=== PATIENT | female | born 1960 | race Caucasian/White ===

== ENCOUNTER 2018-12-28 01:55 | Emergency (ER) | payer OTHER ==
[2018-12-28 03:05] LABS: ADD MAN DIFF? NO
[2018-12-28 03:06] LABS: ABNORMAL IP MESSAGE 1; BASOPHILS % 0.2 % (0.0-2.0); HEMATOCRIT 38.7 % (37.0-47.0); HEMOGLOBIN 13.8 g/dl (12.0-16.0); LYMPHOCYTES # 1.3 10^3/ul (0.8-2.9); LYMPHOCYTES % 5.3 % (15.0-51.0); MEAN CORPUSCULAR HEMOGLOBIN 33.7 pg (29.0-33.0); MEAN CORPUSCULAR HGB CONC 35.7 g/dl (32.0-37.0); MEAN CORPUSCULAR VOLUME 94.4 fl (82.0-101.0); MEAN PLATELET VOLUME 10.1 fl (7.4-10.4); MONOCYTE # 0.8 10^3/ul (0.3-0.9); MONOCYTES % 3.2 % (0.0-11.0); NEUTROPHIL # 21.7 10^3/ul (1.6-7.5); NEUTROPHILS % 89.7 % (39.0-77.0); PLATELET COUNT 272 10^3/UL (140-415); RED CELL DISTRIBUTION WIDTH 14.8 % (11.5-14.5)
[2018-12-28 03:06] LABS: WHITE BLOOD COUNT 24.1 10^3/ul (4.8-10.8)
[2018-12-28 03:10] LABS: POSITIVE DIFF @See below
[2018-12-28 03:23] LABS: ALANINE AMINOTRANSFERASE 32 IU/L (13-69); ALBUMIN 3.1 g/dl (3.3-4.9); ALBUMIN/GLOBULIN RATIO 0.73; ALKALINE PHOSPHATASE 256 IU/L (42-121); ANION GAP 12 (5-13); ASPARTATE AMINO TRANSFERASE 119 IU/L (15-46); BILIRUBIN,INDIRECT 2.9 mg/dl (0-1.1); BILIRUBIN,TOTAL 12.2 mg/dl (0.2-1.3); BLOOD UREA NITROGEN 38 mg/dl (7-20); CALCIUM 9.6 mg/dl (8.4-10.2); CARBON DIOXIDE 24 mmol/L (21-31); CHLORIDE 95 mmol/L (97-110); CREATININE 1.25 mg/dl (0.44-1.00); Estimated GFR 44 mL/min (>60); GLUCOSE 122 mg/dl (70-220); LIPASE 704 U/L (23-300); POTASSIUM 3.5 mmol/L (3.5-5.1); SODIUM 131 mmol/L (135-144); TOTAL PROTEIN 7.3 g/dl (6.1-8.1)
[2018-12-28 03:25] LABS: AMMONIA < 9 umol/l (9-30)
[2018-12-28 04:28] LABS: ADD UMIC NO; UR ASCORBIC ACID NEGATIVE (NEGATIVE); UR BILIRUBIN (Dip) 2+ mg/dL (NEGATIVE); UR BLOOD (Dip) NEGATIVE (NEGATIVE); UR CLARITY CLEAR (CLEAR); UR COLOR AMBER (YELLOW); UR GLUCOSE (Dip) NEGATIVE (NEGATIVE); UR KETONES (Dip) NEGATIVE (NEGATIVE); UR LEUKOCYTE ESTERASE (Dip) NEGATIVE Leu/ul (NEGATIVE); UR NITRITE (Dip) NEGATIVE (NEGATIVE); UR SPECIFIC GRAVITY (Dip) 1.014 (1.003-1.030); UR TOTAL PROTEIN (Dip) NEGATIVE (NEGATIVE); UR UROBILINOGEN (Dip) 2+ mg/dL (NEGATIVE)
== END 2018-12-28 07:13 | disposition home or self-care (01) ==
LOC: E/R 01:55
DX: R41.0 Disorientation, unspecified (principal); N28.9 Disorder of kidney and ureter, unspecified; D72.829 Elevated white blood cell count, unspecified; K74.60 Unspecified cirrhosis of liver
CPT/HCPCS: 36415; 80053; 81003; 82140; 83690; 85025; 99283

== ENCOUNTER 2018-12-29 21:56 | Observation (INO) | payer OTHER ==
[2018-12-30 00:39] LABS: WHITE BLOOD COUNT 27.6 10^3/ul (4.8-10.8)
[2018-12-30 00:39] LABS: ABNORMAL IP MESSAGE 1; HEMATOCRIT 36.4 % (37.0-47.0); HEMOGLOBIN 12.7 g/dl (12.0-16.0); MEAN CORPUSCULAR HEMOGLOBIN 34.1 pg (29.0-33.0); MEAN CORPUSCULAR HGB CONC 34.9 g/dl (32.0-37.0); MEAN CORPUSCULAR VOLUME 97.8 fl (82.0-101.0); MEAN PLATELET VOLUME 10.4 fl (7.4-10.4); PLATELET COUNT 266 10^3/UL (140-415); RED BLOOD COUNT 3.72 10^6/ul (4.20-5.40); RED CELL DISTRIBUTION WIDTH 15.3 % (11.5-14.5)
[2018-12-30 00:41] LABS: POSITIVE DIFF @See below
[2018-12-30 00:42] LABS: ADD MAN DIFF? YES
[2018-12-30 00:58] LABS: INR 1.25; PROTIME 15.8 Sec (11.9-14.9); PT RATIO 1.2
[2018-12-30 00:59] LABS: PARTIAL THROMBOPLASTIN TIME 31.1 Sec (23.0-35.0)
[2018-12-30 01:00] LABS: ALANINE AMINOTRANSFERASE 44 IU/L (13-69); ALBUMIN 3.2 g/dl (3.3-4.9); ALBUMIN/GLOBULIN RATIO 0.74; ALKALINE PHOSPHATASE 266 IU/L (42-121); ANION GAP 15 (5-13); ASPARTATE AMINO TRANSFERASE 101 IU/L (15-46); BILIRUBIN,INDIRECT 2.6 mg/dl (0-1.1); BILIRUBIN,TOTAL 9.8 mg/dl (0.2-1.3); BLOOD UREA NITROGEN 36 mg/dl (7-20); CALCIUM 9.2 mg/dl (8.4-10.2); CARBON DIOXIDE 22 mmol/L (21-31); CHLORIDE 95 mmol/L (97-110); CREATININE 1.31 mg/dl (0.44-1.00); Estimated GFR 42 mL/min (>60); GLUCOSE 137 mg/dl (70-220); LIPASE 1057 U/L (23-300); POTASSIUM 3.6 mmol/L (3.5-5.1); SODIUM 132 mmol/L (135-144); TOTAL PROTEIN 7.5 g/dl (6.1-8.1)
[2018-12-30 01:37] LABS: ANISOCYTOSIS 3+ (0-0); BAND NEUTROPHILS #M 0.2 10^3/ul (0.0-0.6); BAND NEUTROPHILS % (M) 1 % (0-4); BASOPHIL #M 0.2 10^3/ul (0.0-0.0); BASOPHILS % (M) 1 % (0-2); LYMPHOCYTES #M 1.1 10^3/ul (0.8-2.9); LYMPHOCYTES % (M) 4 % (15-51); METAMYELOCYTES #M 0.2 10^3/ul (0.0-0.0); METAMYELOCYTES %M 1 % (0-0); MONOCYTE #M 0.5 10^3/ul (0.3-0.9); MONOCYTES % (M) 2 % (0-11); PLATELET ESTIMATE NORMAL; POIKILOCYTOSIS 1+ (0-0); SEG NEUT #M 25.2 10^3/ul (1.6-7.5); SEGMENTED NEUTROPHILS (M) % 91 % (39-77); SMUDGE%M 24 % (0-0)
[2018-12-30] MEDS ORDERED: ONDANSETRON 4 MG INJ IV (02:00)
[2018-12-30 02:26] LABS: HAAIG REFLEX REFLEX FILED
[2018-12-30] MEDS ORDERED: SPIRONOLACTONE 50 MG TAB PO (02:30)
[2018-12-30] MEDS: LEVOFLOXACIN 500 MG TAB PO (02:51)
[2018-12-30] MEDS: FUROSEMIDE 20 MG INJ IV (02:51)
[2018-12-30 04:25] LABS: HEPATITIS B SURFACE ANTIGEN NEGATIVE (NEGATIVE)
[2018-12-30 04:43] LABS: HEPATITIS B CORE ANTIBODY NEGATIVE (NEGATIVE); HEPATITIS C VIRAL ANTIBODY NEGATIVE (NEGATIVE)
[2018-12-30 06:09] LABS: ADD MAN DIFF? NO
[2018-12-30 06:11] LABS: WHITE BLOOD COUNT 22.8 10^3/ul (4.8-10.8)
[2018-12-30 06:11] LABS: BASOPHIL # 0.1 10^3/ul (0.0-0.1); BASOPHILS % 0.4 % (0.0-2.0); HEMATOCRIT 35.3 % (37.0-47.0); HEMOGLOBIN 12.4 g/dl (12.0-16.0); LYMPHOCYTES # 1.6 10^3/ul (0.8-2.9); LYMPHOCYTES % 6.9 % (15.0-51.0); MEAN CORPUSCULAR HEMOGLOBIN 34.2 pg (29.0-33.0); MEAN CORPUSCULAR HGB CONC 35.1 g/dl (32.0-37.0); MEAN CORPUSCULAR VOLUME 97.2 fl (82.0-101.0); MEAN PLATELET VOLUME 10.5 fl (7.4-10.4); MONOCYTES % 4.2 % (0.0-11.0); NEUTROPHIL # 19.9 10^3/ul (1.6-7.5); NEUTROPHILS % 87.1 % (39.0-77.0); PLATELET COUNT 238 10^3/UL (140-415); RED BLOOD COUNT 3.63 10^6/ul (4.20-5.40); RED CELL DISTRIBUTION WIDTH 15.1 % (11.5-14.5)
[2018-12-30] MEDS: SPIRONOLACTONE 50 MG TAB PO (06:26)
[2018-12-30 06:42] LABS: LIPASE 1072 U/L (23-300)
[2018-12-30 07:02] LABS: ALANINE AMINOTRANSFERASE 44 IU/L (13-69); ALBUMIN 3.1 g/dl (3.3-4.9); ALKALINE PHOSPHATASE 252 IU/L (42-121); ANION GAP 15 (5-13); ASPARTATE AMINO TRANSFERASE 95 IU/L (15-46); BILIRUBIN,INDIRECT 2.7 mg/dl (0-1.1); BILIRUBIN,TOTAL 9.3 mg/dl (0.2-1.3); BLOOD UREA NITROGEN 35 mg/dl (7-20); CALCIUM 9.3 mg/dl (8.4-10.2); CARBON DIOXIDE 25 mmol/L (21-31); CHLORIDE 94 mmol/L (97-110); CREATININE 1.23 mg/dl (0.44-1.00); Estimated GFR 45 mL/min (>60); GLUCOSE 95 mg/dl (70-220); POTASSIUM 3.1 mmol/L (3.5-5.1); SODIUM 134 mmol/L (135-144); TOTAL PROTEIN 7.2 g/dl (6.1-8.1)
[2018-12-30] MEDS: LIDOCAINE 1% (MPF) 5 ML VIAL (08:53)
[2018-12-30] MEDS ORDERED: PROPRANOLOL 20 MG TAB PO ×2 (09:00→10:30)
[2018-12-30] MEDS ORDERED: PANTOPRAZOLE (EC) 40 MG TAB PO (09:30)
[2018-12-30 09:40] LABS: ADD MAN DIFF? NO
[2018-12-30 09:43] LABS: WHITE BLOOD COUNT 21.7 10^3/ul (4.8-10.8)
[2018-12-30 09:43] LABS: BASOPHIL # 0.1 10^3/ul (0.0-0.1); BASOPHILS % 0.3 % (0.0-2.0); EOSINOPHILS % 0.1 % (0.0-7.0); HEMATOCRIT 32.7 % (37.0-47.0); HEMOGLOBIN 11.7 g/dl (12.0-16.0); LYMPHOCYTES # 1.8 10^3/ul (0.8-2.9); LYMPHOCYTES % 8.5 % (15.0-51.0); MEAN CORPUSCULAR HEMOGLOBIN 34.7 pg (29.0-33.0); MEAN CORPUSCULAR HGB CONC 35.8 g/dl (32.0-37.0); MONOCYTES % 4.8 % (0.0-11.0); NEUTROPHIL # 18.4 10^3/ul (1.6-7.5); NEUTROPHILS % 84.9 % (39.0-77.0); PLATELET COUNT 205 10^3/UL (140-415); RED BLOOD COUNT 3.37 10^6/ul (4.20-5.40); RED CELL DISTRIBUTION WIDTH 15.1 % (11.5-14.5)
[2018-12-30 10:02] LABS: FLD MN% 90.3 %; FLD PMN% 9.7 %; FLD WBC 62 /cmm
[2018-12-30] MEDS: PANTOPRAZOLE (EC) 40 MG TAB PO (10:25)
[2018-12-30] MEDS: FUROSEMIDE 40 MG TAB PO (10:25)
[2018-12-30] MEDS: LACTULOSE 30ML CUP PO ×3 (10:25→20:59)
[2018-12-30] MEDS: SPIRONOLACTONE 25 MG TAB PO ×2 (10:30→21:00)
[2018-12-30 10:37] LABS: FLD CLARITY CLEAR; FLD COLOR YELLOW
[2018-12-30 10:37] LABS: FLD TYPE ASCITES
[2018-12-30 10:38] LABS: FLD RBC < 2000 /uL
[2018-12-30 11:02] LABS: FLUID AMYLASE 121 U/L; FLUID LD 117 U/L; FLUID TYPE ASCITES FLUID; FLUID TYPE ASCITIES FLUID
[2018-12-30 11:03] LABS: FLUID TOTAL PROTEIN < 2.0 g/dl
[2018-12-30 11:09] LABS: AMYLASE 151 U/L (11-123)
[2018-12-30] MEDS: PROPRANOLOL 20 MG TAB PO ×2 (12:00→21:00)
[2018-12-30] MEDS: POTASSIUM CHLORIDE (SR) 10 MEQ TAB PO ×2 (12:07→21:02)
[2018-12-31 05:32] LABS: ADD MAN DIFF? NO
[2018-12-31 05:34] LABS: BASOPHIL # 0.1 10^3/ul (0.0-0.1); BASOPHILS % 0.4 % (0.0-2.0); EOSINOPHILS % 0.1 % (0.0-7.0); HEMATOCRIT 35.1 % (37.0-47.0); HEMOGLOBIN 12.2 g/dl (12.0-16.0); LYMPHOCYTES # 1.2 10^3/ul (0.8-2.9); LYMPHOCYTES % 5.7 % (15.0-51.0); MEAN CORPUSCULAR HGB CONC 34.8 g/dl (32.0-37.0); MEAN CORPUSCULAR VOLUME 97.8 fl (82.0-101.0); MEAN PLATELET VOLUME 10.4 fl (7.4-10.4); MONOCYTES % 4.8 % (0.0-11.0); NEUTROPHIL # 18.2 10^3/ul (1.6-7.5); NEUTROPHILS % 87.7 % (39.0-77.0); PLATELET COUNT 207 10^3/UL (140-415); RED BLOOD COUNT 3.59 10^6/ul (4.20-5.40); RED CELL DISTRIBUTION WIDTH 15.5 % (11.5-14.5)
[2018-12-31 05:34] LABS: WHITE BLOOD COUNT 20.8 10^3/ul (4.8-10.8)
[2018-12-31 06:06] LABS: ALANINE AMINOTRANSFERASE 49 IU/L (13-69); ALBUMIN 2.6 g/dl (3.3-4.9); ALKALINE PHOSPHATASE 232 IU/L (42-121); ASPARTATE AMINO TRANSFERASE 130 IU/L (15-46); BILIRUBIN,INDIRECT 2.4 mg/dl (0-1.1); BILIRUBIN,TOTAL 9.1 mg/dl (0.2-1.3)
[2018-12-31 06:39] LABS: ANION GAP 11 (5-13); BLOOD UREA NITROGEN 33 mg/dl (7-20); CALCIUM 9.2 mg/dl (8.4-10.2); CARBON DIOXIDE 23 mmol/L (21-31); CHLORIDE 105 mmol/L (97-110); CREATININE 1.24 mg/dl (0.44-1.00); Estimated GFR 45 mL/min (>60); GLUCOSE 83 mg/dl (70-220); POTASSIUM 4.2 mmol/L (3.5-5.1); SODIUM 139 mmol/L (135-144)
[2018-12-31 07:49] LABS: LIPASE 575 U/L (23-300)
[2018-12-31] MEDS: LACTULOSE 30ML CUP PO ×2 (08:12→13:00)
[2018-12-31] MEDS: POTASSIUM CHLORIDE (SR) 10 MEQ TAB PO (08:12)
[2018-12-31] MEDS: PANTOPRAZOLE (EC) 40 MG TAB PO (08:13)
[2018-12-31] MEDS: PROPRANOLOL 20 MG TAB PO (10:00)
[2018-12-31] MEDS: SPIRONOLACTONE 25 MG TAB PO (10:00)
[2018-12-31] MEDS: FUROSEMIDE 40 MG TAB PO (10:00)
== END 2018-12-31 14:35 | disposition home health service (06) ==
LOC: E/R 21:56 → 2NE 12-30 01:44
DX: K70.31 Alcoholic cirrhosis of liver with ascites (principal); R74.8 Abnormal levels of other serum enzymes; E87.6 Hypokalemia; N28.9 Disorder of kidney and ureter, unspecified
CPT/HCPCS: 36415; 71045; 74181; 76700; 80048; 80053; 80076; 82042; 82150; 83615; 83690; 84157; 85025; 85610; 85730; 86704; 86709; 86803; 87070; 87081; 87102; 87116; 87340; 88104; 88305; 89051; 99285-25

== ENCOUNTER 2019-01-08 16:23 | Inpatient (IN) | payer OTHER ==
[2019-01-08 17:04] LABS: ADD MAN DIFF? NO
[2019-01-08 17:11] LABS: WHITE BLOOD COUNT 19.6 10^3/ul (4.8-10.8)
[2019-01-08 17:11] LABS: BASOPHIL # 0.1 10^3/ul (0.0-0.1); BASOPHILS % 0.3 % (0.0-2.0); HEMATOCRIT 35.5 % (37.0-47.0); HEMOGLOBIN 12.6 g/dl (12.0-16.0); LYMPHOCYTES % 5.3 % (15.0-51.0); MEAN CORPUSCULAR HEMOGLOBIN 33.9 pg (29.0-33.0); MEAN CORPUSCULAR HGB CONC 35.5 g/dl (32.0-37.0); MEAN CORPUSCULAR VOLUME 95.4 fl (82.0-101.0); MEAN PLATELET VOLUME 10.2 fl (7.4-10.4); MONOCYTE # 0.5 10^3/ul (0.3-0.9); MONOCYTES % 2.7 % (0.0-11.0); NEUTROPHIL # 17.7 10^3/ul (1.6-7.5); NEUTROPHILS % 90.3 % (39.0-77.0); PLATELET COUNT 202 10^3/UL (140-415); RED BLOOD COUNT 3.72 10^6/ul (4.20-5.40); RED CELL DISTRIBUTION WIDTH 15.3 % (11.5-14.5)
[2019-01-08 17:33] LABS: AMMONIA 33 umol/l (9-30)
[2019-01-08 17:33] LABS: ALANINE AMINOTRANSFERASE 67 IU/L (13-69); ALBUMIN/GLOBULIN RATIO 0.76; ALKALINE PHOSPHATASE 281 IU/L (42-121); ANION GAP 13 (5-13); ASPARTATE AMINO TRANSFERASE 121 IU/L (15-46); BILIRUBIN,INDIRECT 2.4 mg/dl (0-1.1); BILIRUBIN,TOTAL 7.7 mg/dl (0.2-1.3); BLOOD UREA NITROGEN 28 mg/dl (7-20); CALCIUM 8.8 mg/dl (8.4-10.2); CARBON DIOXIDE 18 mmol/L (21-31); CHLORIDE 92 mmol/L (97-110); CREATININE 1.09 mg/dl (0.44-1.00); Estimated GFR 52 mL/min (>60); GLUCOSE 128 mg/dl (70-220); POTASSIUM 5.1 mmol/L (3.5-5.1); TOTAL PROTEIN 6.9 g/dl (6.1-8.1)
[2019-01-08 17:44] LABS: SODIUM 123 mmol/L (135-144)
[2019-01-08] MEDS ORDERED: ACETAMINOPHEN 325 MG TAB PO (19:30)
[2019-01-08] MEDS ORDERED: ONDANSETRON 4 MG INJ IV (19:30)
[2019-01-08] MEDS: ALBUMIN HUMAN 25% 50 ML IV (20:40)
[2019-01-08] MEDS: LACTULOSE 30ML CUP PO (23:04)
[2019-01-09 01:40] LABS: ADD UMIC YES; UR ASCORBIC ACID NEGATIVE (NEGATIVE); UR BILIRUBIN (Dip) 1+ mg/dL (NEGATIVE); UR BLOOD (Dip) NEGATIVE (NEGATIVE); UR CLARITY SLIGHTLY CLOUDY (CLEAR); UR COLOR AMBER (YELLOW); UR GLUCOSE (Dip) NEGATIVE (NEGATIVE); UR KETONES (Dip) NEGATIVE (NEGATIVE); UR LEUKOCYTE ESTERASE (Dip) 2+ Leu/ul (NEGATIVE); UR MUCUS FEW /HPF (NONE SEEN); UR NITRITE (Dip) NEGATIVE (NEGATIVE); UR RBC 6 /HPF (0-5); UR SPECIFIC GRAVITY (Dip) 1.014 (1.003-1.030); UR SQUAMOUS EPITHELIAL CELL FEW /HPF (FEW); UR TOTAL PROTEIN (Dip) NEGATIVE (NEGATIVE); UR TRANSITIONAL EPI CELL FEW /HPF (NONE SEEN); UR UROBILINOGEN (Dip) 1+ mg/dL (NEGATIVE); UR WBC 18 /HPF (0-5)
[2019-01-09] MEDS: PANTOPRAZOLE (EC) 40 MG TAB PO (05:56)
[2019-01-09 06:01] LABS: ADD MAN DIFF? NO
[2019-01-09 06:09] LABS: BASOPHILS % 0.2 % (0.0-2.0); EOSINOPHILS % 0.1 % (0.0-7.0); HEMATOCRIT 34.6 % (37.0-47.0); HEMOGLOBIN 12.2 g/dl (12.0-16.0); LYMPHOCYTES # 1.2 10^3/ul (0.8-2.9); LYMPHOCYTES % 5.9 % (15.0-51.0); MEAN CORPUSCULAR HEMOGLOBIN 33.2 pg (29.0-33.0); MEAN CORPUSCULAR HGB CONC 35.3 g/dl (32.0-37.0); MEAN CORPUSCULAR VOLUME 94.3 fl (82.0-101.0); MEAN PLATELET VOLUME 10.1 fl (7.4-10.4); MONOCYTES % 5.2 % (0.0-11.0); NEUTROPHIL # 17.1 10^3/ul (1.6-7.5); NEUTROPHILS % 87.5 % (39.0-77.0); PLATELET COUNT 191 10^3/UL (140-415); RED BLOOD COUNT 3.67 10^6/ul (4.20-5.40); RED CELL DISTRIBUTION WIDTH 15.3 % (11.5-14.5)
[2019-01-09 06:09] LABS: WHITE BLOOD COUNT 19.5 10^3/ul (4.8-10.8)
[2019-01-09 06:19] LABS: ALANINE AMINOTRANSFERASE 65 IU/L (13-69); ALBUMIN 2.8 g/dl (3.3-4.9); ALKALINE PHOSPHATASE 259 IU/L (42-121); ASPARTATE AMINO TRANSFERASE 90 IU/L (15-46); BILIRUBIN,INDIRECT 2.2 mg/dl (0-1.1); BILIRUBIN,TOTAL 6.8 mg/dl (0.2-1.3); TOTAL PROTEIN 6.1 g/dl (6.1-8.1)
[2019-01-09 06:36] LABS: ANION GAP 11 (5-13); BLOOD UREA NITROGEN 25 mg/dl (7-20); CALCIUM 8.8 mg/dl (8.4-10.2); CARBON DIOXIDE 24 mmol/L (21-31); CHLORIDE 93 mmol/L (97-110); CREATININE 1.01 mg/dl (0.44-1.00); Estimated GFR 56 mL/min (>60); GLUCOSE 115 mg/dl (70-220); POTASSIUM 3.8 mmol/L (3.5-5.1); SODIUM 128 mmol/L (135-144)
[2019-01-09 06:39] LABS: INR 1.16; PARTIAL THROMBOPLASTIN TIME 33.2 Sec (23.0-35.0); PROTIME 14.9 Sec (11.9-14.9); PT RATIO 1.2
[2019-01-09] MEDS: predniSONE 5 MG TAB PO (08:55)
[2019-01-09] MEDS: LACTULOSE 30ML CUP PO (08:55)
== END 2019-01-09 13:10 | disposition home health service (06) | DRG 442 ==
LOC: E/R 16:23 → 2NE 19:20
PROC: 0W9G3ZZ Drainage of Peritoneal Cavity, Percutaneous Approach (ICD-10-PCS; principal; 2019-01-09)
DX: K72.90 Hepatic failure, unspecified without coma (principal); E87.1 Hypo-osmolality and hyponatremia; K70.31 Alcoholic cirrhosis of liver with ascites; F10.10 Alcohol abuse, uncomplicated; Y90.9 Presence of alcohol in blood, level not specified
CPT/HCPCS: 80048; 80053; 80076; 81001; 82140; 82962; 85025; 85610; 85730; 87086; 99285-25

== ENCOUNTER 2019-01-11 22:16 | Observation (INO) | payer OTHER ==
[2019-01-11 22:54] LABS: ADD MAN DIFF? NO
[2019-01-11 22:56] LABS: BASOPHILS % 0.2 % (0.0-2.0); EOSINOPHILS % 0.1 % (0.0-7.0); HEMATOCRIT 35.6 % (37.0-47.0); HEMOGLOBIN 12.5 g/dl (12.0-16.0); LYMPHOCYTES # 1.5 10^3/ul (0.8-2.9); LYMPHOCYTES % 7.6 % (15.0-51.0); MEAN CORPUSCULAR HEMOGLOBIN 33.1 pg (29.0-33.0); MEAN CORPUSCULAR HGB CONC 35.1 g/dl (32.0-37.0); MEAN CORPUSCULAR VOLUME 94.2 fl (82.0-101.0); MEAN PLATELET VOLUME 9.8 fl (7.4-10.4); MONOCYTE # 0.8 10^3/ul (0.3-0.9); MONOCYTES % 4.3 % (0.0-11.0); NEUTROPHIL # 16.5 10^3/ul (1.6-7.5); NEUTROPHILS % 86.3 % (39.0-77.0); PLATELET COUNT 172 10^3/UL (140-415); RED BLOOD COUNT 3.78 10^6/ul (4.20-5.40); RED CELL DISTRIBUTION WIDTH 15.1 % (11.5-14.5)
[2019-01-11 22:56] LABS: WHITE BLOOD COUNT 19.1 10^3/ul (4.8-10.8)
[2019-01-11] MEDS: SOD CHLORIDE 0.9% 500 ML IV (23:05)
[2019-01-11 23:15] LABS: ALANINE AMINOTRANSFERASE 69 IU/L (13-69); ALBUMIN/GLOBULIN RATIO 0.78; ALKALINE PHOSPHATASE 274 IU/L (42-121); ANION GAP 11 (5-13); ASPARTATE AMINO TRANSFERASE 109 IU/L (15-46); BILIRUBIN,INDIRECT 2.9 mg/dl (0-1.1); BILIRUBIN,TOTAL 7.3 mg/dl (0.2-1.3); BLOOD UREA NITROGEN 19 mg/dl (7-20); CALCIUM 9.1 mg/dl (8.4-10.2); CARBON DIOXIDE 23 mmol/L (21-31); CHLORIDE 89 mmol/L (97-110); CREATININE 0.81 mg/dl (0.44-1.00); Estimated GFR > 60 mL/min (>60); GLUCOSE 100 mg/dl (70-220); POTASSIUM 4.6 mmol/L (3.5-5.1); SODIUM 123 mmol/L (135-144); TOTAL PROTEIN 6.8 g/dl (6.1-8.1)
[2019-01-11 23:16] LABS: AMMONIA < 9 umol/l (9-30)
[2019-01-11 23:16] LABS: ACETAMINOPHEN < 10.0 ug/ml (10.0-30.0); ETHANOL < 10.0 mg/dl (0-0); SALICYLATE < 1.0 mg/dl (5.0-30.0)
[2019-01-11 23:43] LABS: ADD UMIC NO; UR ASCORBIC ACID NEGATIVE (NEGATIVE); UR BILIRUBIN (Dip) 2+ mg/dL (NEGATIVE); UR BLOOD (Dip) NEGATIVE (NEGATIVE); UR CLARITY CLEAR (CLEAR); UR COLOR AMBER (YELLOW); UR GLUCOSE (Dip) NEGATIVE (NEGATIVE); UR KETONES (Dip) NEGATIVE (NEGATIVE); UR LEUKOCYTE ESTERASE (Dip) NEGATIVE Leu/ul (NEGATIVE); UR NITRITE (Dip) NEGATIVE (NEGATIVE); UR SPECIFIC GRAVITY (Dip) 1.019 (1.003-1.030); UR TOTAL PROTEIN (Dip) NEGATIVE (NEGATIVE); UR UROBILINOGEN (Dip) 2+ mg/dL (NEGATIVE)
[2019-01-11 23:55] LABS: AMPHETAMINE/METHAMPHETAMINE Negative (NEGATIVE); BARBITURATES Negative (NEGATIVE); BENZODIAZEPINES Negative (NEGATIVE); CANNABINOIDS Negative (NEGATIVE); COCAINE Negative (NEGATIVE); OPIATES Negative (NEGATIVE)
[2019-01-12 02:39] LABS: LACTIC ACID 1.2 mmol/L (0.5-2.0)
[2019-01-12] MEDS ORDERED: LACTULOSE 30ML CUP PO ×2 (09:00)
[2019-01-12] MEDS ORDERED: SPIRONOLACTONE 25 MG TAB PO (09:00)
[2019-01-12] MEDS: LACTULOSE 30ML CUP PO ×4 (09:34→20:53)
[2019-01-12] MEDS: FUROSEMIDE 40 MG TAB PO (09:45)
[2019-01-12] MEDS: SOD CHLORIDE 0.9% 500 ML IV (11:30)
[2019-01-12] MEDS: SOD CHLORIDE 0.9% 1,000 ML IV (13:45)
[2019-01-12] MEDS: SPIRONOLACTONE 25 MG TAB PO (17:52)
[2019-01-13] MEDS: SOD CHLORIDE 0.9% 1,000 ML IV ×4 (00:20→19:22)
[2019-01-13] MEDS: SPIRONOLACTONE 25 MG TAB PO ×2 (05:32→17:31)
[2019-01-13 07:17] LABS: ANION GAP 10 (5-13); BLOOD UREA NITROGEN 15 mg/dl (7-20); CALCIUM 8.1 mg/dl (8.4-10.2); CARBON DIOXIDE 18 mmol/L (21-31); CHLORIDE 96 mmol/L (97-110); CREATININE 0.73 mg/dl (0.44-1.00); Estimated GFR > 60 mL/min (>60); GLUCOSE 87 mg/dl (70-220); POTASSIUM 4.1 mmol/L (3.5-5.1); SODIUM 124 mmol/L (135-144)
[2019-01-13] MEDS: SODIUM CHLORIDE 1 GM TAB PO ×3 (08:48→20:10)
[2019-01-13] MEDS: LACTULOSE 30ML CUP PO ×4 (08:49→20:10)
[2019-01-13] MEDS: FUROSEMIDE 40 MG TAB PO (08:49)
[2019-01-14] MEDS: SOD CHLORIDE 0.9% 1,000 ML IV ×3 (04:12→16:48)
[2019-01-14] MEDS: SPIRONOLACTONE 25 MG TAB PO (05:17)
[2019-01-14 06:09] LABS: ANION GAP 13 (5-13); BLOOD UREA NITROGEN 13 mg/dl (7-20); CARBON DIOXIDE 15 mmol/L (21-31); CHLORIDE 98 mmol/L (97-110); CREATININE 0.67 mg/dl (0.44-1.00); Estimated GFR > 60 mL/min (>60); GLUCOSE 212 mg/dl (70-220); SODIUM 126 mmol/L (135-144)
[2019-01-14] MEDS: SODIUM CHLORIDE 1 GM TAB PO ×2 (09:45→12:40)
[2019-01-14] MEDS: LACTULOSE 30ML CUP PO ×4 (09:45→16:47)
[2019-01-14] MEDS: FUROSEMIDE 40 MG TAB PO (09:46)
== END 2019-01-14 17:10 ==
LOC: 6WM 01-13 19:32 → E/R 22:16 → 6WM 01-12 00:21
DX: K70.40 Alcoholic hepatic failure without coma (principal); E87.1 Hypo-osmolality and hyponatremia
CPT/HCPCS: 36415; 70450; 71045; 80048; 80053; 80307; 81003; 82140; 82962; 83605; 85025; 87081; 93005; 96360; 99285-25; G0378

== ENCOUNTER 2019-01-19 16:38 | Emergency (ER) | payer SELFPAY, OTHER | END 2019-01-19 22:37 | disposition left against medical advice (07) | LOC: E/R 16:38 | DX: Z53.21 Procedure and treatment not carried out due to patient leaving prior to being seen by health care provider (principal) ==

== ENCOUNTER 2019-01-20 07:18 | Emergency (ER) | payer OTHER ==
[2019-01-20] MEDS: LIDOCAINE 1% (MPF) 5 ML VIAL (10:36)
== END 2019-01-20 11:26 | disposition home or self-care (01) ==
LOC: E/R 07:18
DX: K70.31 Alcoholic cirrhosis of liver with ascites (principal); R40.2142 Coma scale, eyes open, spontaneous, at arrival to emergency department; R40.2362 Coma scale, best motor response, obeys commands, at arrival to emergency department; R40.2252 Coma scale, best verbal response, oriented, at arrival to emergency department
CPT/HCPCS: 99285; 99285-25

== ENCOUNTER 2019-02-07 22:47 | Emergency (ER) | payer OTHER ==
[2019-02-08 01:19] LABS: ADD MAN DIFF? NO
[2019-02-08 01:24] LABS: WHITE BLOOD COUNT 15.5 10^3/ul (4.8-10.8)
[2019-02-08 01:24] LABS: BASOPHILS % 0.3 % (0.0-2.0); EOSINOPHILS # 0.1 10^3/ul (0.0-0.5); EOSINOPHILS % 0.5 % (0.0-7.0); HEMATOCRIT 31.7 % (37.0-47.0); HEMOGLOBIN 11.1 g/dl (12.0-16.0); MEAN CORPUSCULAR HEMOGLOBIN 31.6 pg (29.0-33.0); MEAN CORPUSCULAR VOLUME 90.3 fl (82.0-101.0); MEAN PLATELET VOLUME 9.5 fl (7.4-10.4); MONOCYTE # 1.1 10^3/ul (0.3-0.9); MONOCYTES % 6.8 % (0.0-11.0); NEUTROPHILS % 77.8 % (39.0-77.0); PLATELET COUNT 205 10^3/UL (140-415); RED BLOOD COUNT 3.51 10^6/ul (4.20-5.40); RED CELL DISTRIBUTION WIDTH 14.8 % (11.5-14.5)
[2019-02-08 01:39] LABS: URINE BLOOD (Dip) POC Trace-intact (NEGATIVE); URINE GLUCOSE (Dip) POC Negative (NEGATIVE); URINE KETONES (Dip) POC Trace (NEGATIVE); URINE LEUKOCYTE EST (Dip) POC 2+ (NEGATIVE); URINE NITRITE (Dip) POC Negative (NEGATIVE); URINE TOTAL PROTEIN POC Negative (NEGATIVE)
[2019-02-08 01:39] LABS: URINE PH (Dip) POC 5.5 (5.0-8.5)
[2019-02-08 01:41] LABS: ALANINE AMINOTRANSFERASE 34 IU/L (13-69); ALBUMIN 2.9 g/dl (3.3-4.9); ALBUMIN/GLOBULIN RATIO 0.67; ALKALINE PHOSPHATASE 301 IU/L (42-121); ANION GAP 12 (5-13); ASPARTATE AMINO TRANSFERASE 73 IU/L (15-46); BILIRUBIN,TOTAL 2.8 mg/dl (0.2-1.3); BLOOD UREA NITROGEN 19 mg/dl (7-20); CALCIUM 9.1 mg/dl (8.4-10.2); CARBON DIOXIDE 23 mmol/L (21-31); CHLORIDE 86 mmol/L (97-110); CREATININE 0.94 mg/dl (0.44-1.00); Estimated GFR > 60 mL/min (>60); GLUCOSE 109 mg/dl (70-220); POTASSIUM 4.5 mmol/L (3.5-5.1); SODIUM 121 mmol/L (135-144); TOTAL PROTEIN 7.2 g/dl (6.1-8.1)
[2019-02-08 01:43] LABS: INR 1.17; PT RATIO 1.2
[2019-02-08 01:44] LABS: PARTIAL THROMBOPLASTIN TIME 39.8 Sec (23.0-35.0)
[2019-02-08 01:45] LABS: AMMONIA < 9 umol/l (9-30)
[2019-02-08 01:53] LABS: TROPONIN-I 0.017 ng/ml (0.000-0.120)
[2019-02-08 01:55] LABS: ADD UMIC YES; UR ASCORBIC ACID NEGATIVE (NEGATIVE); UR BACTERIA FEW /HPF (NONE SEEN); UR BILIRUBIN (Dip) NEGATIVE (NEGATIVE); UR BLOOD (Dip) 1+ mg/dL (NEGATIVE); UR CLARITY CLOUDY (CLEAR); UR COLOR AMBER (YELLOW); UR GLUCOSE (Dip) NEGATIVE (NEGATIVE); UR KETONES (Dip) NEGATIVE (NEGATIVE); UR LEUKOCYTE ESTERASE (Dip) 2+ Leu/ul (NEGATIVE); UR MUCUS FEW /HPF (NONE SEEN); UR NITRITE (Dip) NEGATIVE (NEGATIVE); UR RBC 1 /HPF (0-5); UR SPECIFIC GRAVITY (Dip) 1.014 (1.003-1.030); UR SQUAMOUS EPITHELIAL CELL FEW /HPF (FEW); UR TOTAL PROTEIN (Dip) NEGATIVE (NEGATIVE); UR UROBILINOGEN (Dip) NEGATIVE (NEGATIVE); UR WBC > 182 /HPF (0-5)
[2019-02-08] MEDS: CEFTRIAXONE 1 GM/50 ML (PMX) 50 ML IVPB (02:50)
[2019-02-08] MEDS: ALBUMIN HUMAN 25% 100 ML IV (03:38)
[2019-02-08 03:57] LABS: LACTIC ACID 1.9 mmol/L (0.5-2.0)
== END 2019-02-08 04:42 | disposition home or self-care (01) ==
LOC: E/R 22:47
DX: I95.9 Hypotension, unspecified (principal); K70.30 Alcoholic cirrhosis of liver without ascites; N39.0 Urinary tract infection, site not specified; R07.9 Chest pain, unspecified; Z91.040 Latex allergy status
CPT/HCPCS: 71045; 80053; 81001; 81003; 82140; 83605; 84484; 85025; 85610; 85730; 93005; 96374; 96375; 99285-25

== ENCOUNTER 2019-03-02 18:23 | Inpatient (IN) | payer OTHER ==
[2019-03-02] MEDS: ONDANSETRON 4 MG INJ IV (21:07)
[2019-03-02] MEDS: morphine 4 MG/ML VIAL IV (21:07)
[2019-03-02 21:19] LABS: ADD MAN DIFF? NO
[2019-03-02 21:26] LABS: WHITE BLOOD COUNT 16.7 10^3/ul (4.8-10.8)
[2019-03-02 21:26] LABS: BASOPHIL # 0.1 10^3/ul (0.0-0.1); BASOPHILS % 0.3 % (0.0-2.0); EOSINOPHILS # 0.2 10^3/ul (0.0-0.5); EOSINOPHILS % 1.3 % (0.0-7.0); HEMOGLOBIN 7.9 g/dl (12.0-16.0); LYMPHOCYTES # 3.1 10^3/ul (0.8-2.9); LYMPHOCYTES % 18.6 % (15.0-51.0); MEAN CORPUSCULAR HEMOGLOBIN 31.3 pg (29.0-33.0); MEAN CORPUSCULAR HGB CONC 34.3 g/dl (32.0-37.0); MEAN CORPUSCULAR VOLUME 91.3 fl (82.0-101.0); MEAN PLATELET VOLUME 8.9 fl (7.4-10.4); MONOCYTE # 1.4 10^3/ul (0.3-0.9); MONOCYTES % 8.6 % (0.0-11.0); NEUTROPHIL # 11.6 10^3/ul (1.6-7.5); NEUTROPHILS % 69.6 % (39.0-77.0); PLATELET COUNT 274 10^3/UL (140-415); RED BLOOD COUNT 2.52 10^6/ul (4.20-5.40); RED CELL DISTRIBUTION WIDTH 15.5 % (11.5-14.5)
[2019-03-02 21:43] LABS: AMMONIA < 9 umol/l (9-30)
[2019-03-02 21:43] LABS: ALANINE AMINOTRANSFERASE 75 IU/L (13-69); ALBUMIN 2.5 g/dl (3.3-4.9); ALBUMIN/GLOBULIN RATIO 0.65; ALKALINE PHOSPHATASE 275 IU/L (42-121); ANION GAP 10 (5-13); ASPARTATE AMINO TRANSFERASE 114 IU/L (15-46); BILIRUBIN,INDIRECT 1.7 mg/dl (0-1.1); BILIRUBIN,TOTAL 1.7 mg/dl (0.2-1.3); BLOOD UREA NITROGEN 19 mg/dl (7-20); CALCIUM 8.7 mg/dl (8.4-10.2); CARBON DIOXIDE 21 mmol/L (21-31); CHLORIDE 91 mmol/L (97-110); CREATININE 0.87 mg/dl (0.44-1.00); Estimated GFR > 60 mL/min (>60); GLUCOSE 108 mg/dl (70-220); LIPASE 509 U/L (23-300); POTASSIUM 4.8 mmol/L (3.5-5.1); SODIUM 122 mmol/L (135-144); TOTAL PROTEIN 6.3 g/dl (6.1-8.1)
[2019-03-02 22:01] LABS: INR 1.04; PROTIME 13.7 Sec (11.9-14.9); PT RATIO 1.1
[2019-03-02 22:21] LABS: ADD UMIC NO; UR ASCORBIC ACID NEGATIVE (NEGATIVE); UR BILIRUBIN (Dip) NEGATIVE (NEGATIVE); UR BLOOD (Dip) NEGATIVE (NEGATIVE); UR CLARITY SLIGHTLY CLOUDY (CLEAR); UR COLOR AMBER (YELLOW); UR GLUCOSE (Dip) NEGATIVE (NEGATIVE); UR KETONES (Dip) NEGATIVE (NEGATIVE); UR LEUKOCYTE ESTERASE (Dip) NEGATIVE Leu/ul (NEGATIVE); UR MUCUS FEW /HPF (NONE SEEN); UR NITRITE (Dip) NEGATIVE (NEGATIVE); UR RBC 4 /HPF (0-5); UR SPECIFIC GRAVITY (Dip) 1.018 (1.003-1.030); UR SQUAMOUS EPITHELIAL CELL FEW /HPF (FEW); UR TOTAL PROTEIN (Dip) NEGATIVE (NEGATIVE); UR UROBILINOGEN (Dip) NEGATIVE (NEGATIVE); UR WBC 2 /HPF (0-5)
[2019-03-02] MEDS ORDERED: ACETAMINOPHEN 325 MG TAB PO (22:30)
[2019-03-02] MEDS ORDERED: ONDANSETRON 4 MG INJ IV (22:30)
[2019-03-03 05:45] LABS: ADD MAN DIFF? NO
[2019-03-03 05:50] LABS: WHITE BLOOD COUNT 12.7 10^3/ul (4.8-10.8)
[2019-03-03 05:50] LABS: BASOPHILS % 0.3 % (0.0-2.0); EOSINOPHILS # 0.2 10^3/ul (0.0-0.5); EOSINOPHILS % 1.8 % (0.0-7.0); HEMATOCRIT 24.3 % (37.0-47.0); HEMOGLOBIN 8.3 g/dl (12.0-16.0); LYMPHOCYTES # 3.2 10^3/ul (0.8-2.9); LYMPHOCYTES % 25.1 % (15.0-51.0); MEAN CORPUSCULAR HEMOGLOBIN 31.4 pg (29.0-33.0); MEAN CORPUSCULAR HGB CONC 34.2 g/dl (32.0-37.0); MEAN PLATELET VOLUME 8.7 fl (7.4-10.4); MONOCYTE # 1.1 10^3/ul (0.3-0.9); MONOCYTES % 8.8 % (0.0-11.0); NEUTROPHILS % 62.7 % (39.0-77.0); PLATELET COUNT 252 10^3/UL (140-415); RED BLOOD COUNT 2.64 10^6/ul (4.20-5.40); RED CELL DISTRIBUTION WIDTH 15.6 % (11.5-14.5)
[2019-03-03 06:09] LABS: ALANINE AMINOTRANSFERASE 70 IU/L (13-69); ALKALINE PHOSPHATASE 242 IU/L (42-121); ANION GAP 6 (5-13); ASPARTATE AMINO TRANSFERASE 105 IU/L (15-46); BLOOD UREA NITROGEN 19 mg/dl (7-20); CALCIUM 8.8 mg/dl (8.4-10.2); CARBON DIOXIDE 24 mmol/L (21-31); CHLORIDE 94 mmol/L (97-110); CREATININE 0.86 mg/dl (0.44-1.00); Estimated GFR > 60 mL/min (>60); GLUCOSE 91 mg/dl (70-220); POTASSIUM 5.3 mmol/L (3.5-5.1); SODIUM 124 mmol/L (135-144)
[2019-03-03 06:10] LABS: ALBUMIN 2.5 g/dl (3.3-4.9)
[2019-03-03 06:25] LABS: LIPASE 169 U/L (23-300)
[2019-03-03] MEDS: LACTULOSE 30ML CUP PO ×2 (08:39→21:00)
[2019-03-03] MEDS: SODIUM CHLORIDE 1 GM TAB PO ×4 (08:40→21:00)
[2019-03-03] MEDS: SPIRONOLACTONE 25 MG TAB PO ×2 (08:50→10:20)
[2019-03-03] MEDS: NACL 3% 500 ML IV (08:50)
[2019-03-03] MEDS ORDERED: SPIRONOLACTONE 50 MG TAB PO (10:00)
[2019-03-03] MEDS ORDERED: LACTULOSE 30ML CUP PO (10:00)
[2019-03-03] MEDS: FUROSEMIDE 40 MG TAB PO (10:22)
[2019-03-03] MEDS: AL HYDROX/MG HYDROX/SIMETH 30 ML CUP PO (21:27)
[2019-03-03] MEDS: PANTOPRAZOLE (EC) 40 MG TAB PO (22:08)
[2019-03-04] MEDS: AL HYDROX/MG HYDROX/SIMETH 30 ML CUP PO ×2 (03:26→08:45)
[2019-03-04] MEDS: PANTOPRAZOLE (EC) 40 MG TAB PO ×2 (05:26→17:29)
[2019-03-04 07:01] LABS: ADD MAN DIFF? NO
[2019-03-04 07:07] LABS: WHITE BLOOD COUNT 11.9 10^3/ul (4.8-10.8)
[2019-03-04 07:07] LABS: BASOPHILS % 0.3 % (0.0-2.0); EOSINOPHILS # 0.2 10^3/ul (0.0-0.5); EOSINOPHILS % 1.3 % (0.0-7.0); HEMATOCRIT 22.5 % (37.0-47.0); HEMOGLOBIN 7.6 g/dl (12.0-16.0); LYMPHOCYTES # 2.7 10^3/ul (0.8-2.9); LYMPHOCYTES % 22.7 % (15.0-51.0); MEAN CORPUSCULAR HEMOGLOBIN 31.3 pg (29.0-33.0); MEAN CORPUSCULAR HGB CONC 33.8 g/dl (32.0-37.0); MEAN CORPUSCULAR VOLUME 92.6 fl (82.0-101.0); MEAN PLATELET VOLUME 9.1 fl (7.4-10.4); MONOCYTE # 1.3 10^3/ul (0.3-0.9); MONOCYTES % 11.2 % (0.0-11.0); NEUTROPHIL # 7.5 10^3/ul (1.6-7.5); NEUTROPHILS % 63.1 % (39.0-77.0); PLATELET COUNT 256 10^3/UL (140-415); RED BLOOD COUNT 2.43 10^6/ul (4.20-5.40); RED CELL DISTRIBUTION WIDTH 15.8 % (11.5-14.5)
[2019-03-04 07:39] LABS: ANION GAP 6 (5-13); BLOOD UREA NITROGEN 14 mg/dl (7-20); CALCIUM 8.2 mg/dl (8.4-10.2); CARBON DIOXIDE 22 mmol/L (21-31); CHLORIDE 97 mmol/L (97-110); CREATININE 0.79 mg/dl (0.44-1.00); Estimated GFR > 60 mL/min (>60); GLUCOSE 88 mg/dl (70-220); POTASSIUM 4.1 mmol/L (3.5-5.1); SODIUM 125 mmol/L (135-144)
[2019-03-04] MEDS: LACTULOSE 30ML CUP PO ×2 (08:37→20:59)
[2019-03-04] MEDS: SPIRONOLACTONE 50 MG TAB PO (08:38)
[2019-03-04] MEDS: SODIUM CHLORIDE 1 GM TAB PO ×3 (08:38→20:59)
[2019-03-04] MEDS: FUROSEMIDE 40 MG TAB PO (08:38)
[2019-03-04] MEDS: SOD CHLORIDE 0.9% 1,000 ML IV (10:00)
[2019-03-04] MEDS: NACL 3% 500 ML IV ×2 (10:30→22:00)
[2019-03-04] MEDS: ALBUMIN HUMAN 25% 100 ML IV (22:00)
[2019-03-05] MEDS: PANTOPRAZOLE (EC) 40 MG TAB PO ×2 (05:59→18:11)
[2019-03-05] MEDS: ALBUMIN HUMAN 25% 100 ML IV ×3 (06:00→21:28)
[2019-03-05 07:13] LABS: ADD MAN DIFF? NO
[2019-03-05 07:23] LABS: ABNORMAL IP MESSAGE 1; BASOPHILS % 0.4 % (0.0-2.0); EOSINOPHILS # 0.1 10^3/ul (0.0-0.5); EOSINOPHILS % 1.1 % (0.0-7.0); HEMATOCRIT 19.1 % (37.0-47.0); LYMPHOCYTES # 1.9 10^3/ul (0.8-2.9); MEAN CORPUSCULAR HEMOGLOBIN 31.6 pg (29.0-33.0); MEAN CORPUSCULAR VOLUME 92.7 fl (82.0-101.0); MONOCYTE # 0.6 10^3/ul (0.3-0.9); MONOCYTES % 8.6 % (0.0-11.0); NEUTROPHIL # 4.8 10^3/ul (1.6-7.5); NEUTROPHILS % 63.8 % (39.0-77.0); PLATELET COUNT 192 10^3/UL (140-415); RED BLOOD COUNT 2.06 10^6/ul (4.20-5.40); RED CELL DISTRIBUTION WIDTH 15.6 % (11.5-14.5)
[2019-03-05 07:23] LABS: WHITE BLOOD COUNT 7.5 10^3/ul (4.8-10.8)
[2019-03-05 07:25] LABS: POSITIVE DIFF @See below
[2019-03-05 07:27] LABS: HEMOGLOBIN 6.5 g/dl (12.0-16.0); PATH REVIEW? YES
[2019-03-05 07:37] LABS: PHOSPHORUS 2.4 mg/dl (2.5-4.9)
[2019-03-05 07:37] LABS: MAGNESIUM 1.8 mg/dl (1.7-2.5)
[2019-03-05 07:41] LABS: ANION GAP 7 (5-13); BLOOD UREA NITROGEN 13 mg/dl (7-20); CALCIUM 8.5 mg/dl (8.4-10.2); CARBON DIOXIDE 22 mmol/L (21-31); CHLORIDE 100 mmol/L (97-110); CREATININE 0.77 mg/dl (0.44-1.00); Estimated GFR > 60 mL/min (>60); GLUCOSE 80 mg/dl (70-220); SODIUM 129 mmol/L (135-144)
[2019-03-05 07:42] LABS: URIC ACID 5.3 mg/dl (3.1-7.9)
[2019-03-05 07:54] LABS: OSMOLALITY 260 mOsm/kg (280-295)
[2019-03-05 08:29] LABS: HEMATOCRIT 19.9 % (37.0-47.0)
[2019-03-05 08:33] LABS: HEMOGLOBIN 6.8 g/dl (12.0-16.0)
[2019-03-05] MEDS: LACTULOSE 30ML CUP PO ×2 (08:50→20:39)
[2019-03-05] MEDS: SODIUM CHLORIDE 1 GM TAB PO ×3 (08:50→20:39)
[2019-03-05 09:09] LABS: ANISOCYTOSIS 1+ (0-0); EOSINOPHILS % (M) 1 % (0-7); LYMPHOCYTES #M 1.7 10^3/ul (0.8-2.9); LYMPHOCYTES % (M) 23 % (15-51); MONOCYTES % (M) 1 % (0-11); PLATELET ESTIMATE NORMAL; POLYCHROMASIA 3+ (0-0); SEGMENTED NEUTROPHILS (M) % 75 % (39-77); SMUDGE%M 6 % (0-0)
[2019-03-05] MEDS: SPIRONOLACTONE 50 MG TAB PO (09:22)
[2019-03-05] MEDS: FUROSEMIDE 40 MG TAB PO (09:22)
[2019-03-05] MEDS: SOD CHLORIDE 0.9% 250 ML IV (11:00)
[2019-03-05] MEDS: POTASSIUM PHOSPHATE 15 MM in SOD CHLORIDE 0.9% 250 ML IVPB (13:20)
[2019-03-05 14:26] LABS: IMMEDIATE SPIN CROSSMATCH 1 2
[2019-03-05] MEDS: FUROSEMIDE 40 MG INJ IV (14:33)
[2019-03-05] MEDS: CEPASTAT LOZENGE MT ×3 (14:35→21:28)
[2019-03-05] MEDS: AL HYDROX/MG HYDROX/SIMETH 30 ML CUP PO (21:28)
[2019-03-06] MEDS: PANTOPRAZOLE (EC) 40 MG TAB PO ×2 (06:39→17:47)
[2019-03-06 08:58] LABS: ANION GAP 11 (5-13); BLOOD UREA NITROGEN 10 mg/dl (7-20); CALCIUM 8.6 mg/dl (8.4-10.2); CARBON DIOXIDE 20 mmol/L (21-31); CHLORIDE 97 mmol/L (97-110); CREATININE 0.75 mg/dl (0.44-1.00); Estimated GFR > 60 mL/min (>60); GLUCOSE 125 mg/dl (70-220); SODIUM 128 mmol/L (135-144)
[2019-03-06] MEDS: LACTULOSE 30ML CUP PO ×2 (09:00→20:01)
[2019-03-06] MEDS: SPIRONOLACTONE 50 MG TAB PO (09:42)
[2019-03-06] MEDS: FUROSEMIDE 40 MG TAB PO (09:43)
[2019-03-06] MEDS: SODIUM CHLORIDE 1 GM TAB PO ×3 (09:43→20:01)
[2019-03-06] MEDS: CEPASTAT LOZENGE MT (10:43)
[2019-03-06] MEDS: AL HYDROX/MG HYDROX/SIMETH 30 ML CUP PO ×3 (12:12→21:40)
[2019-03-06] MEDS: LIDOCAINE 1% (MPF) 5 ML VIAL (16:44)
[2019-03-06] MEDS: ALBUMIN HUMAN 25% 50 ML IV (17:44)
[2019-03-06] MEDS: SOD CHLORIDE 0.9% 500 ML IV ×2 (20:24→21:45)
[2019-03-07] MEDS: AL HYDROX/MG HYDROX/SIMETH 30 ML CUP PO ×2 (03:45→12:39)
[2019-03-07] MEDS: SOD CHLORIDE 0.9% 500 ML IV (03:46)
[2019-03-07] MEDS: PANTOPRAZOLE (EC) 40 MG TAB PO (04:50)
[2019-03-07] MEDS: SPIRONOLACTONE 50 MG TAB PO (08:49)
[2019-03-07] MEDS: LACTULOSE 30ML CUP PO (08:49)
[2019-03-07] MEDS: FUROSEMIDE 40 MG TAB PO (08:49)
[2019-03-07] MEDS: SODIUM CHLORIDE 1 GM TAB PO ×2 (08:49→12:17)
[2019-03-07 11:33] LABS: ALANINE AMINOTRANSFERASE 42 IU/L (13-69); ALBUMIN 2.7 g/dl (3.3-4.9); ALKALINE PHOSPHATASE 171 IU/L (42-121); ANION GAP 7 (5-13); ASPARTATE AMINO TRANSFERASE 56 IU/L (15-46); BILIRUBIN,INDIRECT 1.8 mg/dl (0-1.1); BILIRUBIN,TOTAL 1.8 mg/dl (0.2-1.3); BLOOD UREA NITROGEN 9 mg/dl (7-20); CALCIUM 8.6 mg/dl (8.4-10.2); CARBON DIOXIDE 20 mmol/L (21-31); CHLORIDE 101 mmol/L (97-110); CREATININE 0.69 mg/dl (0.44-1.00); Estimated GFR > 60 mL/min (>60); GLUCOSE 130 mg/dl (70-220); POTASSIUM 4.3 mmol/L (3.5-5.1); SODIUM 128 mmol/L (135-144); TOTAL PROTEIN 5.7 g/dl (6.1-8.1)
== END 2019-03-07 13:54 | disposition home or self-care (01) | DRG 644 ==
LOC: E/R 18:23 → TEL 22:01
PROC: 30233N1 Transfusion of Nonautologous Red Blood Cells into Peripheral Vein, Percutaneous Approach (ICD-10-PCS; principal; 2019-03-05)
PROC: 0W9G3ZZ Drainage of Peritoneal Cavity, Percutaneous Approach (ICD-10-PCS; 2019-03-06)
DX: E22.2 Syndrome of inappropriate secretion of antidiuretic hormone (principal); E44.0 Moderate protein-calorie malnutrition; Z68.1 Body mass index [BMI] 19.9 or less, adult; I95.9 Hypotension, unspecified; K70.31 Alcoholic cirrhosis of liver with ascites; K70.40 Alcoholic hepatic failure without coma; D64.9 Anemia, unspecified; F10.10 Alcohol abuse, uncomplicated; Y90.9 Presence of alcohol in blood, level not specified; R11.2 Nausea with vomiting, unspecified; N18.9 Chronic kidney disease, unspecified; D63.1 Anemia in chronic kidney disease
CPT/HCPCS: 36415; 36430; 80048; 80053; 80076; 81001; 81003; 82140; 83690; 83735; 83930; 84100; 84560; 85014; 85018; 85025; 85610; 85730; 86850; 86900; 86901; 86920; 96374; 96375; 99285-25

== ENCOUNTER 2019-03-29 22:03 | Inpatient (IN) | payer OTHER ==
[2019-03-29 22:59] LABS: ADD MAN DIFF? NO
[2019-03-29 23:00] LABS: WHITE BLOOD COUNT 8.8 10^3/ul (4.8-10.8)
[2019-03-29 23:00] LABS: BASOPHILS % 0.3 % (0.0-2.0); EOSINOPHILS # 0.1 10^3/ul (0.0-0.5); EOSINOPHILS % 0.8 % (0.0-7.0); HEMATOCRIT 27.3 % (37.0-47.0); HEMOGLOBIN 9.7 g/dl (12.0-16.0); LYMPHOCYTES % 22.8 % (15.0-51.0); MEAN CORPUSCULAR HEMOGLOBIN 30.8 pg (29.0-33.0); MEAN CORPUSCULAR HGB CONC 35.5 g/dl (32.0-37.0); MEAN CORPUSCULAR VOLUME 86.7 fl (82.0-101.0); MONOCYTE # 1.1 10^3/ul (0.3-0.9); MONOCYTES % 12.5 % (0.0-11.0); NEUTROPHIL # 5.5 10^3/ul (1.6-7.5); NEUTROPHILS % 62.9 % (39.0-77.0); PLATELET COUNT 284 10^3/UL (140-415); RED BLOOD COUNT 3.15 10^6/ul (4.20-5.40); RED CELL DISTRIBUTION WIDTH 14.5 % (11.5-14.5)
[2019-03-29 23:19] LABS: ALANINE AMINOTRANSFERASE 52 IU/L (13-69); ALBUMIN/GLOBULIN RATIO 0.88; ALKALINE PHOSPHATASE 156 IU/L (42-121); ANION GAP 8 (5-13); ASPARTATE AMINO TRANSFERASE 62 IU/L (15-46); BILIRUBIN,INDIRECT 1.3 mg/dl (0-1.1); BILIRUBIN,TOTAL 1.3 mg/dl (0.2-1.3); BLOOD UREA NITROGEN 13 mg/dl (7-20); CARBON DIOXIDE 24 mmol/L (21-31); CHLORIDE 88 mmol/L (97-110); CREATININE 0.93 mg/dl (0.44-1.00); Estimated GFR > 60 mL/min (>60); GLUCOSE 100 mg/dl (70-220); POTASSIUM 4.2 mmol/L (3.5-5.1); SODIUM 120 mmol/L (135-144); TOTAL PROTEIN 6.4 g/dl (6.1-8.1)
[2019-03-29 23:21] LABS: ACETAMINOPHEN < 10.0 ug/ml (10.0-30.0); ETHANOL < 10.0 mg/dl (0-0); SALICYLATE < 1.0 mg/dl (5.0-30.0)
[2019-03-29 23:30] LABS: TROPONIN-I < 0.012 ng/ml (0.000-0.120)
[2019-03-29] MEDS: SOD CHLORIDE 0.9% 500 ML IV (23:49)
[2019-03-30] MEDS ORDERED: NACL 0.9% 3 ML SYG IV (01:00)
[2019-03-30] MEDS ORDERED: LACTULOSE 30ML CUP PO (01:00)
[2019-03-30] MEDS ORDERED: DOCUSATE SODIUM 100 MG CAP PO (01:00)
[2019-03-30] MEDS ORDERED: ACETAMINOPHEN 325 MG TAB PO (01:00)
[2019-03-30 01:21] LABS: LACTIC ACID 1.1 mmol/L (0.5-2.0)
[2019-03-30 02:51] LABS: AMPHETAMINE/METHAMPHETAMINE Negative (NEGATIVE); BARBITURATES Negative (NEGATIVE); BENZODIAZEPINES Negative (NEGATIVE); CANNABINOIDS Negative (NEGATIVE); COCAINE Negative (NEGATIVE); OPIATES Negative (NEGATIVE)
[2019-03-30 02:54] LABS: ADD UMIC YES; UR ASCORBIC ACID 40 mg/dL (NEGATIVE); UR BILIRUBIN (Dip) NEGATIVE (NEGATIVE); UR BLOOD (Dip) NEGATIVE (NEGATIVE); UR CALCIUM OXALATE CRYSTAL FEW /HPF (NONE SEEN); UR CLARITY SLIGHTLY CLOUDY (CLEAR); UR COLOR YELLOW (YELLOW); UR GLUCOSE (Dip) NEGATIVE (NEGATIVE); UR KETONES (Dip) NEGATIVE (NEGATIVE); UR LEUKOCYTE ESTERASE (Dip) TRACE Leu/ul (NEGATIVE); UR NITRITE (Dip) NEGATIVE (NEGATIVE); UR RBC 24 /HPF (0-5); UR SPECIFIC GRAVITY (Dip) 1.014 (1.003-1.030); UR SQUAMOUS EPITHELIAL CELL MODERATE /HPF (FEW); UR TOTAL PROTEIN (Dip) NEGATIVE (NEGATIVE); UR UROBILINOGEN (Dip) NEGATIVE (NEGATIVE); UR WBC 10 /HPF (0-5)
[2019-03-30 03:30] LABS: LACTIC ACID 0.9 mmol/L (0.5-2.0)
[2019-03-30] MEDS: FAMOTIDINE 20 MG TAB PO ×3 (04:00→21:30)
[2019-03-30] MEDS: ENOXAPARIN 40 MG/0.4 ML SYG SC (08:08)
[2019-03-30] MEDS: SODIUM CHLORIDE 1 GM TAB PO ×3 (08:08→21:30)
[2019-03-30] MEDS: NACL 3% 500 ML IV (11:06)
[2019-03-30] MEDS: PANTOPRAZOLE (EC) 40 MG TAB PO (16:40)
[2019-03-30 17:49] LABS: AMMONIA 10 umol/l (9-30); URIC ACID 5.2 mg/dl (3.1-7.9)
[2019-03-30 19:16] LABS: UR MUCUS FEW /HPF (NONE SEEN)
[2019-03-30 19:28] LABS: CREATININE,URINE RANDOM 152.79 mg/dl (20-320)
[2019-03-30 19:32] LABS: PROTEIN URINE < 5.0 mg/dl (0.0-11.9); PROTEIN/CREAT RATIO 0.03 RATIO
[2019-03-30 19:39] LABS: SODIUM,URINE RANDOM 17 mmol/L (30-90)
[2019-03-30 20:11] LABS: OSMOLALITY 258 mOsm/kg (280-295)
[2019-03-30 20:58] LABS: OSMOLALITY,URINE 533 mOsm/kg (250-1200)
[2019-03-31] MEDS: NACL 3% 500 ML IV ×2 (03:05→06:06)
[2019-03-31] MEDS: PANTOPRAZOLE (EC) 40 MG TAB PO (06:04)
[2019-03-31 06:43] LABS: ADD MAN DIFF? NO
[2019-03-31 06:54] LABS: WHITE BLOOD COUNT 7.7 10^3/ul (4.8-10.8)
[2019-03-31 06:54] LABS: BASOPHIL # 0.1 10^3/ul (0.0-0.1); BASOPHILS % 0.6 % (0.0-2.0); EOSINOPHILS # 0.1 10^3/ul (0.0-0.5); EOSINOPHILS % 0.6 % (0.0-7.0); HEMATOCRIT 28.4 % (37.0-47.0); HEMOGLOBIN 9.6 g/dl (12.0-16.0); LYMPHOCYTES # 1.6 10^3/ul (0.8-2.9); LYMPHOCYTES % 20.6 % (15.0-51.0); MEAN CORPUSCULAR HEMOGLOBIN 30.5 pg (29.0-33.0); MEAN CORPUSCULAR HGB CONC 33.8 g/dl (32.0-37.0); MEAN CORPUSCULAR VOLUME 90.2 fl (82.0-101.0); MEAN PLATELET VOLUME 8.7 fl (7.4-10.4); MONOCYTE # 0.6 10^3/ul (0.3-0.9); MONOCYTES % 8.2 % (0.0-11.0); NEUTROPHIL # 5.4 10^3/ul (1.6-7.5); NEUTROPHILS % 69.6 % (39.0-77.0); PLATELET COUNT 284 10^3/UL (140-415); RED BLOOD COUNT 3.15 10^6/ul (4.20-5.40); RED CELL DISTRIBUTION WIDTH 14.8 % (11.5-14.5)
[2019-03-31 07:20] LABS: INR 1.06; PROTIME 13.9 Sec (11.9-14.9); PT RATIO 1.1
[2019-03-31 07:21] LABS: PARTIAL THROMBOPLASTIN TIME 43.3 Sec (23.0-35.0)
[2019-03-31 07:29] LABS: ALANINE AMINOTRANSFERASE 43 IU/L (13-69); ALBUMIN 2.8 g/dl (3.3-4.9); ALKALINE PHOSPHATASE 112 IU/L (42-121); ANION GAP 9 (5-13); ASPARTATE AMINO TRANSFERASE 58 IU/L (15-46); BILIRUBIN,INDIRECT 1.5 mg/dl (0-1.1); BILIRUBIN,TOTAL 1.5 mg/dl (0.2-1.3); BLOOD UREA NITROGEN 10 mg/dl (7-20); CALCIUM 8.5 mg/dl (8.4-10.2); CARBON DIOXIDE 22 mmol/L (21-31); CHLORIDE 96 mmol/L (97-110); Estimated GFR > 60 mL/min (>60); GLUCOSE 108 mg/dl (70-220); POTASSIUM 3.3 mmol/L (3.5-5.1); SODIUM 127 mmol/L (135-144); TOTAL PROTEIN 5.9 g/dl (6.1-8.1)
[2019-03-31] MEDS: ONDANSETRON 4 MG TAB PO ×2 (08:12→12:05)
[2019-03-31] MEDS: FAMOTIDINE 20 MG TAB PO (08:12)
[2019-03-31] MEDS: ENOXAPARIN 40 MG/0.4 ML SYG SC (08:13)
[2019-03-31] MEDS: SODIUM CHLORIDE 1 GM TAB PO ×2 (08:13→12:06)
[2019-03-31] MEDS: POTASSIUM CHLORIDE 100 ML IVPB (10:45)
[2019-03-31] MEDS: DEMECLOCYCLINE 150 MG TAB PO (12:06)
[2019-03-31] MEDS: LIDOCAINE 1% (MPF) 5 ML VIAL (12:41)
== END 2019-03-31 17:40 | disposition home or self-care (01) | DRG 433 ==
LOC: E/R 22:03 → 6WM 03-30 00:39
PROVIDERS: Internal Medicine
PROC: 0W9G3ZZ Drainage of Peritoneal Cavity, Percutaneous Approach (ICD-10-PCS; principal; 2019-03-31)
DX: K70.31 Alcoholic cirrhosis of liver with ascites (principal); E87.1 Hypo-osmolality and hyponatremia; N18.9 Chronic kidney disease, unspecified; D63.1 Anemia in chronic kidney disease
CPT/HCPCS: 36415; 70450; 71045; 80053; 80307; 81001; 81003; 82140; 82570; 82962; 83605; 83930; 83935; 84300; 84443; 84484; 84560; 85025; 85610; 85730; 87081; 93005; 99285-25; G0378

== ENCOUNTER 2019-04-05 21:57 | Observation (INO) | payer OTHER ==
[2019-04-05 22:40] LABS: ADD MAN DIFF? NO
[2019-04-05 22:44] LABS: BASOPHILS % 0.4 % (0.0-2.0); EOSINOPHILS # 0.1 10^3/ul (0.0-0.5); EOSINOPHILS % 0.9 % (0.0-7.0); HEMATOCRIT 31.5 % (37.0-47.0); HEMOGLOBIN 11.1 g/dl (12.0-16.0); LYMPHOCYTES # 2.8 10^3/ul (0.8-2.9); LYMPHOCYTES % 28.5 % (15.0-51.0); MEAN CORPUSCULAR HEMOGLOBIN 30.8 pg (29.0-33.0); MEAN CORPUSCULAR HGB CONC 35.2 g/dl (32.0-37.0); MEAN CORPUSCULAR VOLUME 87.5 fl (82.0-101.0); MEAN PLATELET VOLUME 8.4 fl (7.4-10.4); MONOCYTE # 1.1 10^3/ul (0.3-0.9); MONOCYTES % 10.7 % (0.0-11.0); NEUTROPHIL # 5.9 10^3/ul (1.6-7.5); NEUTROPHILS % 58.9 % (39.0-77.0); PLATELET COUNT 274 10^3/UL (140-415); RED CELL DISTRIBUTION WIDTH 14.4 % (11.5-14.5)
[2019-04-05 23:07] LABS: ALANINE AMINOTRANSFERASE 56 IU/L (13-69); ALBUMIN 2.9 g/dl (3.3-4.9); ALBUMIN/GLOBULIN RATIO 0.85; ALKALINE PHOSPHATASE 123 IU/L (42-121); ANION GAP 8 (5-13); ASPARTATE AMINO TRANSFERASE 68 IU/L (15-46); BILIRUBIN,INDIRECT 1.5 mg/dl (0-1.1); BILIRUBIN,TOTAL 1.5 mg/dl (0.2-1.3); BLOOD UREA NITROGEN 11 mg/dl (7-20); CALCIUM 9.1 mg/dl (8.4-10.2); CARBON DIOXIDE 23 mmol/L (21-31); CHLORIDE 93 mmol/L (97-110); CREATININE 0.91 mg/dl (0.44-1.00); Estimated GFR > 60 mL/min (>60); GLUCOSE 107 mg/dl (70-220); POTASSIUM 3.8 mmol/L (3.5-5.1); SODIUM 124 mmol/L (135-144); TOTAL PROTEIN 6.3 g/dl (6.1-8.1)
[2019-04-05 23:08] LABS: AMMONIA 13 umol/l (9-30)
[2019-04-05 23:09] LABS: ACETAMINOPHEN < 10.0 ug/ml (10.0-30.0)
[2019-04-05 23:10] LABS: ETHANOL < 10.0 mg/dl (0-0); SALICYLATE < 1.0 mg/dl (5.0-30.0)
[2019-04-05 23:19] LABS: TROPONIN-I < 0.012 ng/ml (0.000-0.120)
[2019-04-06] MEDS ORDERED: ACETAMINOPHEN 325 MG TAB PO
[2019-04-06] MEDS ORDERED: ONDANSETRON 4 MG INJ IV
[2019-04-06 01:59] LABS: LACTIC ACID 1.3 mmol/L (0.5-2.0)
[2019-04-06 05:24] LABS: LACTIC ACID 1.1 mmol/L (0.5-2.0)
[2019-04-06] MEDS: SPIRONOLACTONE 50 MG TAB PO ×2 (10:11→21:55)
[2019-04-06] MEDS: DEMECLOCYCLINE 150 MG TAB PO ×4 (10:11→21:55)
[2019-04-06] MEDS: NACL 3% 500 ML IV (10:11)
[2019-04-06] MEDS: PANTOPRAZOLE (EC) 40 MG TAB PO (10:12)
[2019-04-06 12:04] LABS: ADD UMIC YES; UR ASCORBIC ACID 20 mg/dL (NEGATIVE); UR BACTERIA FEW /HPF (NONE SEEN); UR BILIRUBIN (Dip) NEGATIVE (NEGATIVE); UR BLOOD (Dip) NEGATIVE (NEGATIVE); UR CALCIUM OXALATE CRYSTAL MODERATE /HPF (NONE SEEN); UR CLARITY CLOUDY (CLEAR); UR COLOR AMBER (YELLOW); UR GLUCOSE (Dip) NEGATIVE (NEGATIVE); UR KETONES (Dip) TRACE mg/dL (NEGATIVE); UR LEUKOCYTE ESTERASE (Dip) NEGATIVE Leu/ul (NEGATIVE); UR MUCUS FEW /HPF (NONE SEEN); UR NITRITE (Dip) NEGATIVE (NEGATIVE); UR RBC 15 /HPF (0-5); UR SPECIFIC GRAVITY (Dip) 1.019 (1.003-1.030); UR SQUAMOUS EPITHELIAL CELL FEW /HPF (FEW); UR TOTAL PROTEIN (Dip) NEGATIVE (NEGATIVE); UR UROBILINOGEN (Dip) NEGATIVE (NEGATIVE); UR WBC 25 /HPF (0-5)
[2019-04-06 12:15] LABS: AMPHETAMINE/METHAMPHETAMINE Negative (NEGATIVE); BARBITURATES Negative (NEGATIVE); BENZODIAZEPINES Negative (NEGATIVE); CANNABINOIDS Negative (NEGATIVE); COCAINE Negative (NEGATIVE); OPIATES Negative (NEGATIVE)
[2019-04-06 13:16] LABS: INR 1.04; PROTIME 13.7 Sec (11.9-14.9); PT RATIO 1.1
[2019-04-06] MEDS ORDERED: PENDING SANTYL ORDER FOR WOUND CARE XX (15:30)
[2019-04-06 18:29] LABS: SODIUM 122 mmol/L (135-144)
[2019-04-07] MEDS: LACTULOSE 30ML CUP PO (00:40)
[2019-04-07] MEDS: NACL 3% 500 ML IV ×2 (00:41→17:21)
[2019-04-07] MEDS ORDERED: ACETAMINOPHEN 325 MG TAB PO (01:00)
[2019-04-07] MEDS: traMADol 50 MG TAB PO (01:16)
[2019-04-07 06:30] LABS: ADD MAN DIFF? NO
[2019-04-07 06:40] LABS: WHITE BLOOD COUNT 8.8 10^3/ul (4.8-10.8)
[2019-04-07 06:40] LABS: BASOPHILS % 0.3 % (0.0-2.0); EOSINOPHILS % 0.2 % (0.0-7.0); HEMATOCRIT 29.2 % (37.0-47.0); HEMOGLOBIN 10.2 g/dl (12.0-16.0); LYMPHOCYTES % 23.2 % (15.0-51.0); MEAN CORPUSCULAR HEMOGLOBIN 30.5 pg (29.0-33.0); MEAN CORPUSCULAR HGB CONC 34.9 g/dl (32.0-37.0); MEAN CORPUSCULAR VOLUME 87.4 fl (82.0-101.0); MEAN PLATELET VOLUME 8.7 fl (7.4-10.4); MONOCYTE # 0.8 10^3/ul (0.3-0.9); MONOCYTES % 9.3 % (0.0-11.0); NEUTROPHIL # 5.8 10^3/ul (1.6-7.5); NEUTROPHILS % 66.4 % (39.0-77.0); PLATELET COUNT 280 10^3/UL (140-415); RED BLOOD COUNT 3.34 10^6/ul (4.20-5.40); RED CELL DISTRIBUTION WIDTH 14.6 % (11.5-14.5)
[2019-04-07 06:59] LABS: ANION GAP 7 (5-13); BLOOD UREA NITROGEN 11 mg/dl (7-20); CALCIUM 8.7 mg/dl (8.4-10.2); CARBON DIOXIDE 21 mmol/L (21-31); CHLORIDE 102 mmol/L (97-110); CREATININE 0.81 mg/dl (0.44-1.00); Estimated GFR > 60 mL/min (>60); GLUCOSE 84 mg/dl (70-220); POTASSIUM 3.6 mmol/L (3.5-5.1); SODIUM 130 mmol/L (135-144)
[2019-04-07] MEDS: SPIRONOLACTONE 50 MG TAB PO (08:08)
[2019-04-07] MEDS: DEMECLOCYCLINE 150 MG TAB PO ×3 (08:08→17:25)
[2019-04-07] MEDS: PANTOPRAZOLE (EC) 40 MG TAB PO (08:09)
[2019-04-07] MEDS: LIDOCAINE 1% (MPF) 5 ML VIAL (14:28)
== END 2019-04-07 19:30 | disposition home health service (06) ==
LOC: E/R 21:57 → TEL 23:32
DX: E87.1 Hypo-osmolality and hyponatremia (principal); K70.40 Alcoholic hepatic failure without coma; K70.31 Alcoholic cirrhosis of liver with ascites; N18.9 Chronic kidney disease, unspecified; D63.1 Anemia in chronic kidney disease
CPT/HCPCS: 36415; 70450; 71045; 80048; 80053; 80307; 81001; 82140; 82962; 83605; 84295; 84484; 85025; 85610; 87081; 87086; 93005; 99285-25; G0378